=== PATIENT | female | born 1980 | race Hispanic/Latino ===

== ENCOUNTER 2017-01-03 08:54 | Emergency (ER) | payer SELFPAY ==
[2017-01-03] MEDS ORDERED: Promethazine HCl 25 MG/ML VIAL ONE (09:19)
[2017-01-03] MEDS ORDERED: Meclizine HCl 25 MG TAB ONE ×2 (09:35→09:38)
== END 2017-01-03 10:02 | disposition home or self-care (01) ==
LOC: NAV ERS 08:54
DX: H81.10 Benign paroxysmal vertigo, unspecified ear (principal)
CPT/HCPCS: 96374; J2550